=== PATIENT | male | born 1960 | race Caucasian/White ===

== ENCOUNTER → 2017-07-10 | Outpatient (CLI) | payer OTHER ==
[~2017-07-10] MED LIST: ASPIRIN 325 MG TABLET ONE; CLOPIDOGREL BISULFATE 75 MG TABLET ONE; DIAZEPAM 10 MG TABLET. ONE; EPINEPHrine 1 MG/ML VIAL ONE; HEPARIN SODIUM 5,000 UNIT/ML VIAL for PCVC. ONE; IODIXANOL 270 MG/ML 100 ML VIAL. ONE; IV NORMAL SALINE 1000ML BAG 1,000 ML ONE; LIDOCAINE 1% Multi-Dose 20 ML VIAL. ONE; MIDAZOLAM HCL/PF 2 MG/2 ML VIAL. ONE; fentaNYL PF VIAL 100 MCG/2 ML VIAL ONE
--- NOTE | 2017-07-10 09:57 | PCVCINTER ---
EXAM: 1. AORTOGRAM AND BILATERAL LOWER EXTREMITY RUNOFF ANGIOGRAM 2. BILATERAL RENAL ANGIOGRAPHY 3. RIGHT COMMON ILIAC ARTERY STENT PLACEMENT. INDICATION: Peripheral arterial disease. Coronary artery disease. Right hip and buttock claudication. Hypertension. Renal atherosclerosis. PROCEDURE: Procedure and risks of angiography intervention is appropriate including limb loss stroke and were discussed with the patient's family and consent obtained. The patient's left groin was prepped abnormal sterile fashion. IV conscious sedation was used to procedure with appropriate monitoring from 8:30 AM through 9:45 AM. Ultrasound was used to interrogate the left groin and showed the left common femoral artery to be patent. A permanent spot film was obtained. Under ultrasound guidance access into the left common femoral artery was obtained and a 5 Cuban sheath was placed. Through this a 5 Cuban flush catheter was placed into the abdominal aorta at the level of the renal arteries and AP aortogram was performed. Catheter was positioned at the aortic bifurcation and both oblique views of the pelvis were obtained. Catheter was positioned into the left external iliac artery and left leg runoff angiography was performed. Catheter was exchanged for a visceral catheter was placed into the right renal arteries and right renal angiograms obtained. Catheter was placed into the the left renal arteries and left renal angiograms were obtained. Catheter was advanced to the level of the right external iliac artery and right leg runoff angiography was obtained. Patient was given 4000 units of heparin. A 6 Cuban crossover sheath was placed via the left groin to the level of the right common iliac artery. Stent placement across the areas of high-grade stenosis in the right common iliac artery was carried out with a 10 x 40 Smart control stent with subsequent dilatation to 8.0 mm. Follow-up angiogram was performed. Catheters and wires removed. Sheath was removed and hemostasis obtained using the FISH device. No immediate complications. FINDINGS: Aortogram: There is one right and one left renal artery. Mild plaque infrarenal abdominal aorta without significant stenosis. Pelvis: Exophytic plaque lower common iliac artery results in 80% stenosis. Moderate stenosis origin internal iliac artery. The external iliac artery is patent on the right. Mild plaque in the left common and external iliac arteries without significant stenosis. The left internal iliac artery is patent. [id number] ectasia of both common femoral arteries with moderate plaque without evidence of significant stenosis. The right and left profunda femoral arteries are patent. Right renal artery: Minimal plaque proximal vessel does not cause significant stenosis. Left renal artery: Minimal plaque proximal vessel does not cause significant stenosis. Right leg: The superficial femoral artery and popliteal arteries show good patency. Three-vessel runoff into the foot. Left leg: The superficial femoral artery and popliteal arteries show good patency. Three-vessel runoff into the foot. Right common iliac artery: Following procedure as above good patency is restored. IMPRESSION: 80% stenosis lower right common iliac artery by large exophytic plaque was treated as above with good patency restored. Ectasia of both common femoral arteries without significant stenosis. LOC:[id number]
== END | disposition home or self-care (01) ==
LOC: PCVCINTER 07:29
PROVIDERS: ATTEND Nuclear Medicine Nuclear Cardiology
DX: I70.201 Unspecified atherosclerosis of native arteries of extremities, right leg (principal); I10 Essential (primary) hypertension; I25.10 Atherosclerotic heart disease of native coronary artery without angina pectoris
CPT/HCPCS: 36252; 37221; 75716; 76937; 99152; 99153; C1725; C1751; C1760; C1769; C1876; C1894; J0171; J0690; J1644; J2250; J3010; J7030; Q9966

== ENCOUNTER → 2017-08-02 | Outpatient (CLI) | payer OTHER ==
--- NOTE | 2017-08-02 14:30 | PCVCIMAG ---
APPROVED REPORT Study performed: 08/02/2017 12:58:23 EXAM: Comprehensive 2D, Doppler, and color-flow Echocardiogram Patient Location: Echo lab Status: routine BSA: 2.09 HR: 91 bpmBP: 130/85 mmHg Rhythm: NSR Other Information Study Quality: Adequate Indications Hypertension/HDD Smoking. PVD. Abnormal Calcium Score 2D Dimensions LVEF(%): 55.32 (>50%) IVSd: 8.37 (7-11mm)LVOT Diam: 20.79 (18-24mm) LVDd: 38.38 mm PWd: 10.44 (7-11mm)Ascending Ao: 38.34 (22-36mm) LVDs: 27.53 (25-40mm) Left Atrium: 28.21 (27-40mm) Aortic Root: 26.65 mm LV Single Plane 4CH: 50.50 % Leal's LVEF: 55.32 % Volumes Left Atrial Volume (Systole) Single Plane 4CH: 22.29 mLSingle Plane 2CH: 11.69 mL LA ESV Index: 10.00 mL/m2 Aortic Valve AoV Peak Alvino.: 1.23 m/s AO Peak Gr.: 6.04 mmHgLVOT Max P.46 mmHg LVOT Max V: 0.93 m/s AMY Vmax: 2.57 cm2 Mitral Valve E/A Ratio: 1.1 MV Decel. Time: 190.56 ms MV E Max Alvino.: 0.63 m/s MV A Alvino.: 0.55 m/s TDI E/Lateral E': 4.85E/Medial E': 7.00 Medial E' Alvino.: 0.09 m/s Lateral E' Alvino.: 0.13 m/s Pulmonary Valve PV Peak Gr.: 3.43 mmHg Left Ventricle The left ventricle is normal size. There is normal LV segmental wall motion. There is normal left ventricular wall thickness. Left ventricular systolic function is normal. The left ventricular ejection fraction is within the normal range. LVEF is 65-70%. Right Ventricle The right ventricle is normal size. The right ventricular systolic function is normal. Atria The left atrium size is normal. The right atrium size is normal. Aortic Valve The aortic valve is normal in structure. No aortic regurgitation is present. There is no aortic valvular stenosis. Mitral Valve The mitral valve is normal in structure. There is no mitral valve regurgitation noted. No evidence of mitral valve stenosis. Tricuspid Valve The tricuspid valve is normal in structure. There is no tricuspid valve regurgitation noted. Pulmonic Valve The pulmonary valve is normal in structure. There is no pulmonic valvular regurgitation. Great Vessels The aortic root is normal in size. IVC is normal in size and collapses with >50% inspiration Pericardium There is no pericardial effusion. <Conclusion> The left ventricle is normal size. Left ventricular systolic function is normal. The right ventricle is normal size. The left atrium size is normal. The aortic valve is normal in structure. There is no mitral valve regurgitation noted. There is no pericardial effusion.
--- NOTE | 2017-08-02 17:04 | PCVCIMAG ---
APPROVED REPORT Exam: Stress Echocardiogram Indication: Hypertension, Smoking, Abnormal calcium Score, PVD Stress Nurse: Kacie Cobb RN Status: routine Ht: 6 ft 4 in HR: 91 bpm BP: 130/85 mmHg Medical History Medical History: HTN Cardiac Risk Factors: HTN, Smoking Procedure The patient underwent an Exercise Stress Test using the Wil Protocol. Blood pressure, heart rate, and EKG were monitored. An Echocardiogram was performed by master automotive glass technician in four stages in quad fashion. At peak stress, four selected images were obtained and placed side by side with resting images for comparison. Stress Test Details Stress Test: Exercise stress testing was performed using a Wil protocol. HR Resting HR: 91 bpmMax Heart Rate (APMHR): 162 bpm Max HR Achieved: 171 bpmTarget HR (85% APMHR): 137 bpm % of APMHR: 105 HR response to stress: Normal HR response to stress BP Resting BP: 130/85 mmHg Max BP: 184/85 mmHg ECG Resting ECG: Sinus Rhythm Stress ECG: Sinus Rhythm ST Change: Non-ischemic Arrhythmia: VPC's Clinical Reason for Termination: Maximal effort, Dyspnea Exercise duration: 9 min sec Highest Stage Achieved: Stage 3: 3.4 mph at 14% grade. Exercise capacity: 10.10 METs Overall Exercise Capacity for Age: Normal Pre-Stress Echo The resting Echocardiogram showed normal left ventricular contractility with an estimated Ejection Fraction of about 55-60%. Normal wall motion in all segments on baseline images. Post-Stress Echo The stress Echocardiogram showed normal left ventricular contractility with an estimated Ejection Fraction of about 60-65%. Normal augmentation of wall motion in all segments on post stress images. Clinical No clinical or ECG evidence for ischemia. Conclusion Clinical Response: Non-ischemic Exercise Capacity: Average Stress ECG Response: Non-ischemic Stress Echo Images: Non-ischemic The left ventricle is normal in size and wall thickness in both the rest and stress images. Other Information Study Quality: Adequate <Conclusion> The left ventricle is normal in size and wall thickness in both the rest and stress images.
== END | disposition home or self-care (01) ==
LOC: PCVCIMAG 12:46
PROVIDERS: ATTEND Internal Medicine Cardiovascular Disease
DX: I10 Essential (primary) hypertension (principal); I25.10 Atherosclerotic heart disease of native coronary artery without angina pectoris; E78.5 Hyperlipidemia, unspecified; I73.9 Peripheral vascular disease, unspecified; F17.210 Nicotine dependence, cigarettes, uncomplicated; E83.59 Other disorders of calcium metabolism
CPT/HCPCS: 36415; 93005; 93306; 93351; G0463

== ENCOUNTER → 2018-01-29 | Outpatient (CLI) | payer OTHER | END | disposition home or self-care (01) | LOC: PCVCIMAG 10:45 | DX: I10 Essential (primary) hypertension (principal); R09.89 Other specified symptoms and signs involving the circulatory and respiratory systems; I73.9 Peripheral vascular disease, unspecified | CPT/HCPCS: 93880; 93923; 93978 ==